=== PATIENT | female | born 1985 | race African-American/Black ===

== ENCOUNTER 2019-04-27 15:33 | Emergency (ER) | payer MEDICAID ==
[~2019-04-27] VITALS: Ht 165.1 cm; Wt 127.3 kg
[2019-04-27 16:05] VITALS: TEMP 97.8
[2019-04-27 16:25] LABS: COLLECTION METHOD CLEAN CATCH
[2019-04-27 16:32] LABS: MUCOUS Present /lpf; PH 5 (5-8); SQUAMOUS EPITHELIAL 0-2 /hpf; URINE APPEARANCE Clear; URINE BACTERIA Rare /hpf; URINE BILIRUBIN Negative (NEGATIVE); URINE BLOOD Negative (NEGATIVE); URINE COLOR Yellow; URINE GLUCOSE Negative (NEGATIVE); URINE KETONE Negative (NEGATIVE); URINE LEUKOCYTE ESTERASE Negative (NEGATIVE); URINE NITRATE Negative (NEGATIVE); URINE PROTEIN(semi-quant) Negative (NEGATIVE); URINE RBC 0-2 /hpf
[2019-04-27 16:54] LABS: BASO # 0.1 (0.0-0.2); BASO % 0.6 % (0.0-2.0); EOS # 0.2 (0.0-0.7); EOS % 2.5 % (0-4.0); GRAN % 44.3 % (42.2-75.2); HEMATOCRIT 40.4 % (37.0-47.0); HEMOGLOBIN 13.5 g/dl (12.5-16.0); LYMPH # 4.2 (1.2-3.4); LYMPH % 46.2 % (20.0-51.0); MEAN CELL VOLUME 71 fl (80.0-100.0); MEAN CORPUSCULAR HEMOGLOBIN 24 pg (27.0-31.0); MEAN CORPUSCULAR HGB CONC 33 g/dl (33.0-37.0); MEAN PLATELET VOLUME 10.1 fl (7.4-10.4); MONO # 0.6 (0.1-0.6); MONO % 6.2 % (1.7-9.3); PLATELET COUNT 341 K/mm3 (130-400); RED BLOOD COUNT 5.69 M/mm3 (4.10-5.30); REDCELL DISTRIBUTION WIDTH-CV 15.9 % (11.5-14.5)
[2019-04-27] MEDS ORDERED: PROAIR HFA0.09 MG/AC IH (17:11)
[2019-04-27 17:12] LABS: ALBUMIN 4.7 gm/dL (3.5-5.0); BILIRUBIN,TOTAL 0.7 mg/dL (0.0-1.0); C-REACTIVE PROTEIN 1.1 mg/dL (0.0-0.9); CALCIUM 9.5 mg/dL (8.4-10.2); CREATININE, serum 0.56 (0.52-1.25); TOTAL PROTEIN 8.9 gm/dL (6.4-8.2)
[2019-04-27] MEDS ORDERED: FLEXERIL 1010 MG/TAB PO (17:48)
[2019-04-27] MEDS ORDERED: NAPROSYN500 MG PO (17:48)
[2019-04-27 18:08] VITALS: BP 126/86; PULSE 66
== END 2019-04-27 18:10 | disposition home or self-care (01) ==
LOC: COL.ER 15:33
PROVIDERS: Emergency Medicine
DX: R10.9 Unspecified abdominal pain (principal); Z98.890 Other specified postprocedural states
CPT/HCPCS: J2405; J3010; J7030; Q9967